=== PATIENT | female | born 1945 | race African-American/Black ===

== ENCOUNTER 2017-12-15 10:49 | Day surgery (SDC) | payer OTHER ==
[~2017-12-15] VITALS: Ht 161.9 cm; Wt 72.1 kg
[~2017-12-15 10:49] MED LIST: HYDR12.54 PO; NEBI20TA2 PO
[2017-12-15 12:21] LABS: BASOPHILS % 0.7 % (0.0-2.0); EOSINOPHILS % 1.1 % (0.0-5.0); HEMATOCRIT. 42.2 % (36.0-48.0); LYMPHOCYTES % 20.3 % (20.0-50.0); MEAN CORPUSCULAR HEMOGLOBIN 28.6 pg (28.0-32.0); MEAN CORPUSCULAR VOLUME 86.2 fL (81.0-99.0); MEAN PLATELET VOLUME 8.6 fl (7.4-10.4); NEUTROPHILS % 69.9 % (40.0-76.0); PLATELET 238 x1000/uL (130-400); RED BLOOD CELL COUNT 4.89 mill/uL (4.2-5.4); RED CELL DISTRIBUTION WIDTH 14.9 % (11.6-14.6)
[2017-12-15 12:22] LABS: PARTIAL THROMBOPLASTIN TIME 25.8 sec (23.4-31.0); PROTHROMBIN TIME 10.3 sec (9.4-11.6)
[2017-12-15 12:24] LABS: CLARITY URINE CLOUDY (CLEAR); COLOR URINE ORANGE (YELLOW); KETONES URINE 2+ (NEGATIVE); LEUKOCYTE ESTERASE URINE 1+ (NEGATIVE); NITRITE URINE NEGATIVE (NEGATIVE); OCCULT BLOOD URINE 3+ (NEGATIVE); PROTEIN URINE 1+ (NEGATIVE); SPECIFIC GRAVITY URINE 1.021 (1.005-1.030)
[2017-12-15 12:37] LABS: CHLORIDE 102 mEq/L (98-107)
[2017-12-15] MEDS ORDERED: SODIUM CHLORIDE 0.9% 1,000 ML IV ONE (12:42)
[2017-12-15] MEDS ORDERED: HYDROMORPHONE HCL/PF 2MG/ML CPJ IV PRN (12:45)
[2017-12-15] MEDS ORDERED: MEPERIDINE HCL/PF 25MG/ML CPJ IV PRN (12:45)
[2017-12-15] MEDS ORDERED: ONDANSETRON HCL 4MG/2ML VIAL IV PRN (12:45)
[2017-12-15] MEDS ORDERED: FENTANYL CITRATE/PF 50MCG/ML 2ML VIAL ONE ×2 (13:07→13:36)
[2017-12-15] MEDS ORDERED: SUCCINYLCHOLINE CHLORIDE 200MG/10ML VIAL IV ONE (13:08)
[2017-12-15] MEDS ORDERED: GLYCOPYRROLATE 0.2 MG/ML 2ML VIAL ONE (13:08)
[2017-12-15] MEDS ORDERED: LIDOCAINE HCL/PF 1% 10 MG/ML 5ML VIAL ONE (13:08)
[2017-12-15] MEDS ORDERED: DEXAMETHASONE 4MG/ML 1ML VIAL ONE (13:08)
[2017-12-15] MEDS ORDERED: METOCLOPRAMIDE HCL 10MG/2ML VIAL ONE (13:08)
[2017-12-15] MEDS ORDERED: ONDANSETRON HCL 4MG/2ML VIAL ONE (13:08)
[2017-12-15] MEDS ORDERED: PROPOFOL 200MG/20ML VIAL IV ONE (13:08)
[2017-12-15] MEDS ORDERED: MIDAZOLAM HCL 2 MG/2 ML VIAL ONE (13:08)
[2017-12-15] MEDS ORDERED: EPHEDRINE SULFATE 50MG/ML VIAL ONE (13:43)
== END 2017-12-15 15:40 | disposition home or self-care (01) ==
LOC: OR 10:49
PROVIDERS: ATTEND Obstetrics & Gynecology Obstetrics
DX: N84.0 Polyp of corpus uteri (principal); N95.0 Postmenopausal bleeding; I10 Essential (primary) hypertension; M17.12 Unilateral primary osteoarthritis, left knee; J42 Unspecified chronic bronchitis; E66.3 Overweight; Z98.890 Other specified postprocedural states; Z88.2 Allergy status to sulfonamides; Z79.899 Other long term (current) drug therapy; Z88.0 Allergy status to penicillin; Z88.8 Allergy status to other drugs, medicaments and biological substances
CPT/HCPCS: 36415; 58558; 80048; 81003; 85025; 85610; 85730; 87086; 88305; 93005; J0330; J1100; J2250; J2405; J2765; J3010; J3490; J7120; J2704